=== PATIENT | male | born 1950 | race Caucasian/White ===

== ENCOUNTER 2020-01-30 11:22 | Inpatient (IN) | payer MEDICARE, OTHER ==
[~2020-01-30] VITALS: Ht 170.2 cm; Wt 96.6 kg
[2020-01-30 12:23] LABS: Basophils # (auto) 0.1 10 ^3/uL (0-0.2); Basophils % (auto) 1.3 % (0.0-2.0); Eosinophils # (auto) 0.2 10 ^3/uL (0-0.8); Eosinophils % (auto) 2.8 % (0.0-7.0); Hematocrit 44.8 % (41.0-53.0); Lymphocytes % (auto) 13.7 % (10.0-50.0); Mean Corpuscular Hemoglobin 30.2 pg (28.0-32.0); Mean Corpuscular Hgb Conc. 33.4 g/dL (32.0-36.0); Mean Corpuscular Volume 90.4 fL (80.0-100.0); Monocytes # (auto) 0.8 10 ^3/uL (0-1.3); Monocytes % (auto) 11.2 % (0.0-12.0); Nucleated Red Blood Cells % 0.1 %; Platelet Count (auto) 243 10^3/uL (140-450); Red Blood Cells 4.96 10^6/uL (4.5-5.90); Red Cell Distribution Width 14.8 % (11.8-14.3)
[2020-01-30 12:45] LABS: Albumin 3.2 g/dL (3.4-5.0); Anion Gap 9 (5-15); Blood Urea Nitrogen 19 mg/dL (7-18); Calcium 8.4 mg/dL (8.5-10.1); Carbon Dioxide 21 mmol/L (21-32); Chloride 108 mmol/L (98-107); Glucose 106 mg/dL (74-106); Potassium 4.2 mmol/L (3.5-5.1); Sodium 138 mmol/L (136-145)
[2020-01-30 12:50] LABS: Alanine Aminotransferase 33 U/L (16-61); Alkaline Phosphatase 106 U/L (45-117); Aspartate Aminotransferase 29 U/L (15-37); BUN/Creatinine Ratio 17.9; Bilirubin, Total 0.3 mg/dL (0.2-1.0); GFR African American 89 mL/min; GFR Non-African American 74 mL/min; Total Protein 7.8 g/dL (6.4-8.2)
[2020-01-30] MEDS ORDERED: IOHEXOL 350 MG/ML 100ML IJ ONE (13:36)
[2020-01-30] MEDS ORDERED: AZITHROMYCIN 500MG/ 250ML 250 ML IV ONE (16:45)
[2020-01-30] MEDS ORDERED: cefTRIAXone 1GM/50ML D5W 50 ML IV ONE (16:45)
[2020-01-30] MEDS ORDERED: MORPHINE SULF INJ 2 MG/ML SYRINGE 1ML IV PRN (17:30)
[2020-01-30] MEDS ORDERED: ACETAMINOPHEN 325 MG TAB PO PRN (17:30)
[2020-01-30] MEDS ORDERED: LORazepam 2MG/ML-1ML VIAL IV PRN (17:30)
[2020-01-30] MEDS ORDERED: ONDANSETRON HCL 4 MG/2 ML VIAL IV PRN (17:30)
[2020-01-30] MEDS ORDERED: HYDROcodone-ACET 5/325MG TAB PO PRN (17:30)
[2020-01-30] MEDS ORDERED: NITROGLYCERIN 0.4 MG SL TAB SL PRN (17:30)
[2020-01-30 17:48] LABS: Urine Bacteria NONE SEEN /hpf (None Seen); Urine Blood TRACE /uL (Negative); Urine Mucus FEW (None Seen); Urine Specific Gravity 1.029 (1.001-1.035); Urine WBC 1 /hpf (0 - 3)
--- NOTE | 2020-01-30 19:51 | NUR ---
MS admit from ER SOFIA THOMPSON admitted to tele/MS after SBAR received. Patient oriented to Maya Mary, primary RN, unit, room, bed, and unit policies regarding patient care and visiting hours. Patient weighed by bedscale and encouraged to call if they need something. All questions and concerns addressed, patient verbalized understanding.
[2020-01-30 21:30] VITALS: BP 138/87
[2020-01-30] MEDS ORDERED: OMEP20TA PO (21:41)
[2020-01-30 22:00] VITALS: BP 138/87
[2020-01-31] VITALS (7 sets, daily range): BP systolic 109–149; BP diastolic 68–90
[2020-01-31 06:08] LABS: Basophils # (auto) 0 10 ^3/uL (0-0.2); Basophils % (auto) 0.7 % (0.0-2.0); Eosinophils # (auto) 0.2 10 ^3/uL (0-0.8); Eosinophils % (auto) 3.6 % (0.0-7.0); Hematocrit 38.4 % (41.0-53.0); Hemoglobin 12.9 g/dL (13.5-17.5); Lymphocytes % (auto) 18.3 % (10.0-50.0); Mean Corpuscular Hemoglobin 30.4 pg (28.0-32.0); Mean Corpuscular Hgb Conc. 33.7 g/dL (32.0-36.0); Mean Corpuscular Volume 90.3 fL (80.0-100.0); Monocytes # (auto) 0.7 10 ^3/uL (0-1.3); Monocytes % (auto) 14.2 % (0.0-12.0); Neutrophils # (auto) 3.3 10 ^3/uL (1.6-8.6); Neutrophils % (auto) 63.2 % (37.0-80.0); Nucleated Red Blood Cells % 0.1 %; Platelet Count (auto) 204 10^3/uL (140-450); Red Blood Cells 4.25 10^6/uL (4.5-5.90); Red Cell Distribution Width 14.9 % (11.8-14.3); White Blood Cell 5.2 10^3/uL (4.4-10.8)
[2020-01-31 06:31] LABS: Albumin 2.8 g/dL (3.4-5.0); Calcium 8.2 mg/dL (8.5-10.1)
[2020-01-31 06:35] LABS: BUN/Creatinine Ratio 18.2; Bilirubin, Total 0.3 mg/dL (0.2-1.0); Total Protein 6.8 g/dL (6.4-8.2)
--- NOTE | 2020-01-31 07:50 | NUR ---
Opening Shift Note Assumed care of patient, awake and alert. No S/S of distress/SOB or pain. Instructed on POC and to call for assist PRN, will continue to monitor for changes Q1hr and PRN. Bed locked in lowest position with two side rails up and call light in reach.
[2020-01-31] MEDS: ENOXAPARIN SOD 40 MG/0.4 ML SYRINGE SC SCH (09:42)
[2020-01-31] MEDS: AZITHROMYCIN 500MG/ 250ML 250 ML IV SCH (09:42)
[2020-01-31] MEDS ORDERED: cefTRIAXone 1GM/50ML D5W 50 ML IV SCH (10:00)
[2020-01-31] MEDS: NICOTINE 14 MG/24HR TOPICAL PATCH TD ONE ×2 (10:45→14:00)
--- NOTE | 2020-01-31 12:56 | NUR ---
DR MARCOS ROUNDING ORDERS RECEIVED. WILL IMPLEMENT.
[2020-01-31] MEDS ORDERED: IPRATROPIUM BROM 0.5 MG/2.5ML INH SOL NEB PRN (13:00)
[2020-01-31] MEDS ORDERED: ALBUTEROL SULF 2.5 MG/0.5ML(0.5%) NEB SOLN NEB PRN (13:00)
[2020-01-31] MEDS ORDERED: guaiFENesin-DM 100/10mg/5ml SYR PO PRN (13:00)
[2020-01-31] MEDS: guaiFENesin-DM 100/10mg/5ml SYR PO SCH ×3 (13:58→21:30)
[2020-01-31] MEDS: FOLIC ACID 1 MG, MULTIPLE VITAMIN 10 ML, MAGNESIUM SULF SDV 50% 8 MEQ, THIAMINE INJ 100... INJ SCH ×5 (14:01)
[2020-01-31] MEDS: IPRATROPIUM BROM 0.5 MG/2.5ML INH SOL NEB SCH ×3 (14:43→23:01)
[2020-01-31] MEDS: ALBUTEROL SULF 2.5 MG/0.5ML(0.5%) NEB SOLN NEB SCH ×3 (14:44→23:01)
--- NOTE | 2020-01-31 19:30 | NUR ---
received report from day rn poc reviewed
[2020-01-31] MEDS: BUDESONIDE (INHALATION) 0.5 MG/2 ML NEB NEB SCH (23:00)
--- NOTE | 2020-02-01 00:11 | NUR ---
awoke resp even and unlabored, no c/o pain or discomfort
--- NOTE | 2020-02-01 00:12 | NUR ---
resting with eyes closed no c/o distress
[2020-02-01] MEDS: guaiFENesin-DM 100/10mg/5ml SYR PO SCH ×2 (04:30→10:34)
[2020-02-01 05:00] VITALS: BP 133/67
[2020-02-01] MEDS: IPRATROPIUM BROM 0.5 MG/2.5ML INH SOL NEB SCH ×3 (05:45→14:00)
[2020-02-01] MEDS: ALBUTEROL SULF 2.5 MG/0.5ML(0.5%) NEB SOLN NEB SCH ×3 (05:45→14:00)
[2020-02-01] MEDS: BUDESONIDE (INHALATION) 0.5 MG/2 ML NEB NEB SCH (05:46)
[2020-02-01 06:12] LABS: Basophils # (auto) 0 10 ^3/uL (0-0.2); Basophils % (auto) 0.7 % (0.0-2.0); Eosinophils # (auto) 0.2 10 ^3/uL (0-0.8); Hematocrit 39.7 % (41.0-53.0); Hemoglobin 13.3 g/dL (13.5-17.5); Lymphocytes # (auto) 0.8 10 ^3/uL (0.4-5.4); Lymphocytes % (auto) 15.4 % (10.0-50.0); Mean Corpuscular Hemoglobin 30.1 pg (28.0-32.0); Mean Corpuscular Hgb Conc. 33.4 g/dL (32.0-36.0); Mean Corpuscular Volume 90.1 fL (80.0-100.0); Monocytes # (auto) 0.7 10 ^3/uL (0-1.3); Neutrophils # (auto) 3.5 10 ^3/uL (1.6-8.6); Neutrophils % (auto) 67.9 % (37.0-80.0); Platelet Count (auto) 209 10^3/uL (140-450); Red Blood Cells 4.41 10^6/uL (4.5-5.90); Red Cell Distribution Width 14.6 % (11.8-14.3); White Blood Cell 5.2 10^3/uL (4.4-10.8)
--- NOTE | 2020-02-01 06:56 | NUR ---
report given to am nurse poc reviewed
[2020-02-01 07:44] LABS: Albumin 2.9 g/dL (3.4-5.0); Calcium 8.3 mg/dL (8.5-10.1); Potassium 4.1 mmol/L (3.5-5.1)
[2020-02-01 07:47] LABS: BUN/Creatinine Ratio 18.8; Bilirubin, Total 0.4 mg/dL (0.2-1.0); Total Protein 6.9 g/dL (6.4-8.2)
[2020-02-01 08:00] VITALS: BP 114/79
[2020-02-01 08:49] VITALS: BP 114/79
--- NOTE | 2020-02-01 09:20 | NUR ---
RADIOLOGY: Notified bedside Rachell AGUIRRE that per radiologist, Dr Kerr, a lung biopsy via intervention radiology would be too risky. Dr Kerr recommends a bronchoscopy inorder to get biopsy. RN to inform ordering doctor, Dr Santiago. Addendum: 02/01/20 at 1024 by STACY CHESTER RN T/C from bedside Rachell AGUIRRE. Dr Santiago wanting to speak with radiologist, Dr Kerr. Provided RN with MD's cell phone so Dr Santiago can speak with radiologist.
--- NOTE | 2020-02-01 09:53 | NUR ---
I faxed home health and home oxygen order to [facility].
[2020-02-01] MEDS ORDERED: predniSONE 20 MG TAB PO SCH (10:00)
[2020-02-01] MEDS: ENOXAPARIN SOD 40 MG/0.4 ML SYRINGE SC SCH (10:00)
[2020-02-01] MEDS ORDERED: NICOTINE 14 MG/24HR TOPICAL PATCH TD SCH (10:00)
[2020-02-01] MEDS: AZITHROMYCIN 500MG/ 250ML 250 ML IV SCH (10:34)
[2020-02-01] MEDS ORDERED: GUAI600T23 PO (10:35)
[2020-02-01] MEDS ORDERED: PRED20TA2 PO (10:35)
[2020-02-01] MEDS ORDERED: IPRA0.00 IN (10:35)
[2020-02-01] MEDS: FOLIC ACID 1 MG, MULTIPLE VITAMIN 10 ML, MAGNESIUM SULF SDV 50% 8 MEQ, THIAMINE INJ 100... INJ SCH ×5 (12:00)
[2020-02-01 13:00] VITALS: BP 128/77
[2020-02-01 14:59] VITALS: BP 128/77
--- NOTE | 2020-02-01 15:40 | NUR ---
SCHEDULED MN TX NOT GIVEN AT THIS TIME. PT DECLINED MN TX. PT DENIES ANY RESPIRATORY DISTRESS. PT ESTATES HE IS "BEING DISCHARGED". RN AT BEDSIDE.
--- NOTE | 2020-02-01 16:38 | NUR ---
Discharge instructions given as ordered. Encourage to follow up with PMD as instructed. All questions and concerns addressed. Patient verbalized understanding. Medication reconciliation form completed and copy given to patient. No Home medications held in Pharmacy and none to be returned to patient, and no needed vaccines given. IV removed with catheter intact, pressure dressing applied. Patient taken to vehicle via wheelchair with all personal belongings, accompanied by staff and family member. No distress noted at time of departure. Oxygen in hand and delivered to bed, patient taking home.
[2020-02-02] MEDS ORDERED: cefTRIAXone 1GM/50ML D5W 50 ML IV SCH (09:00)
== END 2020-02-01 16:40 | disposition home health service (06) | DRG 189 ==
LOC: ER 11:22 → OVERFLOW 11:23 → WEST WING 19:57
PROVIDERS: ADMIT Internal Medicine; ATTEND Internal Medicine
DX: J96.01 Acute respiratory failure with hypoxia (principal); J18.9 Pneumonia, unspecified organism; I10 Essential (primary) hypertension; R91.1 Solitary pulmonary nodule; R91.8 Other nonspecific abnormal finding of lung field; K21.9 Gastro-esophageal reflux disease without esophagitis; F10.20 Alcohol dependence, uncomplicated; Y90.9 Presence of alcohol in blood, level not specified; J43.9 Emphysema, unspecified; Z20.828 Contact with and (suspected) exposure to other viral communicable diseases; Z87.891 Personal history of nicotine dependence; Z79.899 Other long term (current) drug therapy
CPT/HCPCS: 36415; 71045; 71275; 80053; 80320; 81001; 83605; 84484; 85025; 87040; 87070; 87804; 87880; 93005; 94640; 96365; 96368; G0378; J0696

== ENCOUNTER 2020-07-13 15:43 | Inpatient (IN) | payer OTHER ==
[~2020-07-13] VITALS: Ht 170.2 cm; Wt 70.9 kg
[~2020-07-13 15:43] MED LIST: GUAI600T23 PO; IPRA0.00 IN; OMEP20TA PO; PRED20TA2 PO
[2020-07-13 16:41] LABS: Neutrophils % (auto) 92.5 % (37.0-80.0); White Blood Cell 10.3 10^3/uL (4.4-10.8)
[2020-07-13 16:42] LABS: Basophils # (auto) 0 10 ^3/uL (0-0.2); Basophils % (auto) 0.1 % (0.0-2.0); Eosinophils # (auto) 0 10 ^3/uL (0-0.8); Hemoglobin 12.6 g/dL (13.5-17.5); Lymphocytes # (auto) 0.3 10 ^3/uL (0.4-5.4); Lymphocytes % (auto) 2.8 % (10.0-50.0); Mean Corpuscular Hemoglobin 30.8 pg (28.0-32.0); Mean Corpuscular Hgb Conc. 33.3 g/dL (32.0-36.0); Mean Corpuscular Volume 92.4 fL (80.0-100.0); Monocytes # (auto) 0.5 10 ^3/uL (0-1.3); Monocytes % (auto) 4.6 % (0.0-12.0); Neutrophils # (auto) 9.6 10 ^3/uL (1.6-8.6); Platelet Count (auto) 297 10^3/uL (140-450); Red Blood Cells 4.11 10^6/uL (4.5-5.90); Red Cell Distribution Width 14.3 % (11.8-14.3)
[2020-07-13 17:00] LABS: INR 0.98 (0.9-1.15); Partial Thromboplastin Time 26.5 sec (23.0-31.2)
[2020-07-13 17:10] LABS: Albumin 2.7 g/dL (3.4-5.0); BUN/Creatinine Ratio 26.6; Calcium 9.2 mg/dL (8.5-10.1); Potassium 4.7 mmol/L (3.5-5.1)
[2020-07-13 17:15] LABS: Bilirubin, Total 0.3 mg/dL (0.2-1.0); Total Protein 7.2 g/dL (6.4-8.2)
[2020-07-13] MEDS ORDERED: NITROGLYCERIN 0.4 MG SL TAB SL PRN (18:15)
[2020-07-13] MEDS ORDERED: HYDROmorphone HCL 2 MG/ML VL IV ONE (18:15)
[2020-07-13] MEDS ORDERED: HYDROcodone-ACET 5/325MG TAB PO PRN (18:15)
[2020-07-13] MEDS ORDERED: MORPHINE SULF INJ 2 MG/ML SYRINGE 1ML IV PRN (18:15)
[2020-07-13] MEDS ORDERED: ONDANSETRON HCL 4 MG/2 ML VIAL IV ONE (18:15)
[2020-07-13] MEDS: levoFLOXacin 500MG 100 ML IV SCH (18:34)
[2020-07-13 20:08] VITALS: BP 148/94
--- NOTE | 2020-07-13 21:50 | NUR ---
Telemetry admit from ER DONNASOFIA Hartmann admitted to Telemetry unit after SBAR received. Patient oriented to Mari Posadas, RN primary RN, unit, room, bed, and unit policies regarding patient care and visiting hours. Patient now on continuous telemetry monitoring, tele box #[id number]. Patient placed on bedside oxygen at 6 liters face mask, weighed by bedscale and encouraged to call if they need something. All questions and concerns addressed, patient verbalized understanding. Bed is in lowest locked position with bed rails up x2 and call light is within reach of the patient.
[2020-07-13 22:00] VITALS: BP_SYST 145; BP_SYST 160; BP_DIAS 103; BP_DIAS 96
--- NOTE | 2020-07-13 22:50 | NUR ---
Called and spoke with URBAN ANTHROPOLOGIST: Called ER and spoke with Radha AGUIRRE from ER who previously took care of patient. Radha AGUIRRE clarified that patient is to be on low intermittent suction from chest tube.
[2020-07-13] MEDS ORDERED: GUAI200T2 PO (23:25)
[2020-07-14] VITALS (7 sets, daily range): BP systolic 111–127; BP diastolic 74–93
[2020-07-14 06:52] LABS: Basophils # (auto) 0 10 ^3/uL (0-0.2); Basophils % (auto) 0.2 % (0.0-2.0); Eosinophils # (auto) 0 10 ^3/uL (0-0.8); Eosinophils % (auto) 0.2 % (0.0-7.0); Hematocrit 37.5 % (41.0-53.0); Hemoglobin 12.5 g/dL (13.5-17.5); Lymphocytes # (auto) 0.5 10 ^3/uL (0.4-5.4); Lymphocytes % (auto) 6.1 % (10.0-50.0); Mean Corpuscular Hemoglobin 30.9 pg (28.0-32.0); Mean Corpuscular Hgb Conc. 33.3 g/dL (32.0-36.0); Mean Corpuscular Volume 92.8 fL (80.0-100.0); Monocytes # (auto) 0.8 10 ^3/uL (0-1.3); Monocytes % (auto) 10.1 % (0.0-12.0); Neutrophils # (auto) 6.8 10 ^3/uL (1.6-8.6); Neutrophils % (auto) 83.4 % (37.0-80.0); Platelet Count (auto) 257 10^3/uL (140-450); Red Blood Cells 4.04 10^6/uL (4.5-5.90); Red Cell Distribution Width 14.1 % (11.8-14.3); White Blood Cell 8.1 10^3/uL (4.4-10.8)
[2020-07-14 07:06] LABS: Potassium 4.7 mmol/L (3.5-5.1)
--- NOTE | 2020-07-14 09:05 | NUR ---
PT STATES PERSISTENT UNPRODUCTIVE COUGHING AND SOB. RT PAGED FOR BREATHING TX. Addendum: 07/14/20 at 0914 by Rae Shah RN SPO2 93% ON 4L N/C, PT PUT ON FACE MASK AT 8L, SPO2 99%. WILL CONTINUE TO MONITOR.
--- NOTE | 2020-07-14 09:12 | NUR ---
RT AT BEDSIDE FOR BREATHING TX.
--- NOTE | 2020-07-14 09:43 | NUR ---
DR. WHEELER PAGED RE PT STATES CONTINUED NONPRODUCTIVE COUGHING AND SOB.
--- NOTE | 2020-07-14 09:50 | NUR ---
RECEIVED CALL BACK FROM DR. WHEELER. UPDATED ON PATIENT STATUS. NEW ORDERS RECEIVED AND CARRIED OUT.
[2020-07-14] MEDS: PANTOPRAZOLE 40 MG TAB PO SCH (10:09)
[2020-07-14] MEDS: MORPHINE SULF INJ 2 MG/ML SYRINGE 1ML IV PRN ×3 (10:09→23:11)
[2020-07-14] MEDS: DOCUSATE SOD 100 MG CAP PO SCH (10:09)
[2020-07-14] MEDS: guaiFENesin 200 MG/10 ML UD PO PRN ×3 (10:10→21:59)
[2020-07-14] MEDS: ENOXAPARIN SOD 40 MG/0.4 ML SYRINGE SC SCH (10:10)
[2020-07-14] MEDS: levoFLOXacin 500MG 100 ML IV SCH (10:10)
--- NOTE | 2020-07-14 12:52 | NUR ---
Dr. Hale paged regarding CXR results. Awaiting call back.
--- NOTE | 2020-07-14 19:30 | NUR ---
OPENING SHIFT NOTE Assumed care of patient who is A&Ox4. Currently on 8L via NC with continuous oximeter monitoring in place. Shallow respirations and dry cough noted. Patient states it is painful to take a deep breath. Chest tube present at left upper chest, connected to LIS. Minimal serosanguineous fluid noted in tubing. Dressing to left flank is CDI. Patient denies pain to this area. PIV in right wrist is intact and patent. Flushed with 10ml NS. Patient is currently on bedrest, however is ambulatory at baseline. Bed is in low locked position with side rails up x2. Call light is within reach and patient encouraged to call for assistance when needed. Will continue to monitor for changes PRN.
--- NOTE | 2020-07-14 19:40 | NUR ---
Patient has finished eating and now placed back onto simple mask. Spo2 is 99% at 8L.
--- NOTE | 2020-07-14 22:07 | NUR ---
ROUNDS Pulse oximeter not reading at this time. Probe changed, and spo2 is 100%, HR 129. Patient reports nagging dry cough, resulting in chest pain at chest tube insertion site. Patient requesting Morphine at this time. Informed that medication was not yet due at this time; Guaifenesin administered according to orders. Patient verbalized understanding.
--- NOTE | 2020-07-14 23:18 | NUR ---
ABNORMAL HEART RHYTHM Patient had a 7 beat run of Vtach. Patient denies chest pain at this time. ECG performed and is unchanged in comparison to ECG from admission. Notified Dr. Merida, on-call for Dr. Gotti. New orders received. Read back and verified. Will follow through.
[2020-07-15 05:00] VITALS: BP 113/77
[2020-07-15] MEDS: MORPHINE SULF INJ 2 MG/ML SYRINGE 1ML IV PRN ×2 (06:19→20:50)
--- NOTE | 2020-07-15 06:23 | NUR ---
BREATH SOUNDS Patient has audible rhonchi in Bilateral upper lobes. Spo2 is 98% on 8L via mask. Patient continues to cough and have difficulty clearing secretions. Declines expectorant at this time. RT paged for PRN breathing treatment. Patient requests pain medication for chest pain associated with repeated coughing. Patient medicated according to orders.
[2020-07-15] MEDS: ALBUTEROL SULF 2.5 MG/0.5ML(0.5%) NEB SOLN NEB PRN (06:37)
[2020-07-15] MEDS: IPRATROPIUM BROM 0.5 MG/2.5ML INH SOL NEB PRN (06:38)
--- NOTE | 2020-07-15 06:44 | NUR ---
CLOSING NOTE Patient continues to be stable at this time. Reports improvement in pain. Chest tube remains in place, connected to LIS. Care endorsed to on coming RN.
[2020-07-15 09:00] VITALS: BP 104/74
[2020-07-15] MEDS: PANTOPRAZOLE 40 MG TAB PO SCH (10:33)
[2020-07-15] MEDS: DOCUSATE SOD 100 MG CAP PO SCH (10:33)
[2020-07-15] MEDS: levoFLOXacin 500MG 100 ML IV SCH (10:33)
[2020-07-15] MEDS: ENOXAPARIN SOD 40 MG/0.4 ML SYRINGE SC SCH (10:34)
[2020-07-15 13:00] VITALS: BP 105/77
[2020-07-15 17:00] VITALS: BP 116/78
[2020-07-15 19:40] VITALS: BP 120/65
--- NOTE | 2020-07-15 19:40 | NUR ---
OPENING SHIFT NOTE Assumed care of patient who is A&O x4. Currently on 4L via simple mask. Patient is coughing and has rhonchi throughout bilaterally. sPo2 is 79% Patient is requesting breathing treatment. O2 increased to 8L via simple mask. spo2 increased to 97% Guaifenesin administered as ordered to assist with expectoration. Emesis bag provided for expectorating. RT paged per patient request.
[2020-07-15] MEDS: guaiFENesin 200 MG/10 ML UD PO PRN (19:49)
--- NOTE | 2020-07-15 20:15 | NUR ---
RESPIRATORY Received call back from RT. Explained patient's situation. Per RT, Neb treatment would not be helpful for patient's current complaint at this time. RT to come speak with patient. Patient informed by this RN that breathing treatment is not indicated at this time. Encouraged to continue attempting to expectorate secretions and drink water as tolerated to help thin secretions. Instructed to notify this RN immediately if SOB or difficulty breathing increases. Patient verbalizes understanding and states that his "coughing and phlegm is getting better" since the administration of Guaifenesin. Spo2 remains at 97% at this time. Will continue to monitor for changes.
[2020-07-15 22:49] VITALS: BP 120/65
[2020-07-16] MEDS: MORPHINE SULF INJ 2 MG/ML SYRINGE 1ML IV PRN ×2 (04:47→22:48)
[2020-07-16 05:36] VITALS: BP 126/68
[2020-07-16 06:07] LABS: Basophils # (auto) 0 10 ^3/uL (0-0.2); Basophils % (auto) 0.3 % (0.0-2.0); Eosinophils # (auto) 0 10 ^3/uL (0-0.8); Eosinophils % (auto) 0.4 % (0.0-7.0); Hematocrit 34.4 % (41.0-53.0); Hemoglobin 11.6 g/dL (13.5-17.5); Lymphocytes # (auto) 0.5 10 ^3/uL (0.4-5.4); Lymphocytes % (auto) 6.9 % (10.0-50.0); Mean Corpuscular Hemoglobin 30.7 pg (28.0-32.0); Mean Corpuscular Hgb Conc. 33.6 g/dL (32.0-36.0); Mean Corpuscular Volume 91.2 fL (80.0-100.0); Monocytes # (auto) 0.6 10 ^3/uL (0-1.3); Monocytes % (auto) 9.1 % (0.0-12.0); Neutrophils # (auto) 5.9 10 ^3/uL (1.6-8.6); Neutrophils % (auto) 83.3 % (37.0-80.0); Platelet Count (auto) 268 10^3/uL (140-450); Red Blood Cells 3.78 10^6/uL (4.5-5.90); Red Cell Distribution Width 14.1 % (11.8-14.3); White Blood Cell 7.1 10^3/uL (4.4-10.8)
[2020-07-16 06:26] LABS: BUN/Creatinine Ratio 24.5; Calcium 9.2 mg/dL (8.5-10.1); Potassium 4.2 mmol/L (3.5-5.1)
--- NOTE | 2020-07-16 06:40 | NUR ---
RT NOTE PRN MED NEB TX NOT INDICATED AT THIS TIME. NO SIGNS OR SYMPTOMS OF RESPIRATORY DISTRESS NOTED. HR 108, RR 16, SPO2 97% ON 7L SIMPLE MASK, BS CLEAR. PT IS ON CONTINUOUS BEDSIDE POX MONITORING.PT IS SLEEPING COMFORTABLY.
--- NOTE | 2020-07-16 08:00 | NUR ---
OPENING SHIFT NOTE ASSUMED CARE OF PATIENT AWAKE AND ALERT. NO S/S OF DISTRESS NOTED OR COMPLAINTS OF PAIN. PATIENT UPDATED ON POC FOR THE DAY, ALL QUESTIONS ANSWERED. PATIENT VERBALIZED UNDERSTANDING. BED IS IN LOWEST, LOCKED POSITION WITH SIDE RAILS UP X2 AND CALL LIGHT WITHIN REACH. WILL CONTINUE TO MONITOR Q1H AND PRN.
[2020-07-16 08:44] VITALS: BP 125/70
[2020-07-16] MEDS: DOCUSATE SOD 100 MG CAP PO SCH ×2 (09:57→10:03)
[2020-07-16] MEDS: levoFLOXacin 500MG 100 ML IV SCH ×2 (09:57→10:03)
[2020-07-16] MEDS: PANTOPRAZOLE 40 MG TAB PO SCH ×2 (09:57→10:03)
[2020-07-16] MEDS: ENOXAPARIN SOD 40 MG/0.4 ML SYRINGE SC SCH ×2 (09:58→10:03)
[2020-07-16 13:00] VITALS: BP 114/84
[2020-07-16 16:29] VITALS: BP 115/82
--- NOTE | 2020-07-16 19:15 | NUR ---
Opening shift note Received bedside report from day shift RNBecky. Patient A&Ox4, patient on 8L by simple mask, showing 99% at this time. Made aware that patient will switch to 4L NC while eating. Chest tube connected to LIS with less than 5 ml of serosanguineous fluid in suction canister. Discussed POC with patient who verbalized understanding. Advised patient to call for assistance. Urinal bedside. Safety precautions in place, bed in lowest locked position with 2 side rails up, call light within reach. Will continue to monitor Q1hr and PRN.
--- NOTE | 2020-07-16 19:20 | NUR ---
Respiratory note: ASSESSMENT FOR PRN MED NEB TX AND PULSE OX ASSESSMENT. PT IN NO RESPIRATORY DISTRESS, SITTING UP IN BED WATCHING TV. HR 114, SPO2 98% ON 8L SIMPLE MASK, RR 17, BS DIMINISHED CLEAR. MED NEB TX NOT INDICATED AT THIS TIME, PT ON CONT. BEDSIDE PULSE OX, PLUGGED INTO RED OUTLET. WILL CONTINUE TO MONITOR.
[2020-07-16 21:08] LABS: Basophils # (auto) 0 10 ^3/uL (0-0.2); Basophils % (auto) 0.3 % (0.0-2.0); Eosinophils # (auto) 0 10 ^3/uL (0-0.8); Eosinophils % (auto) 0.3 % (0.0-7.0); Hematocrit 35.6 % (41.0-53.0); Hemoglobin 11.5 g/dL (13.5-17.5); Lymphocytes # (auto) 0.4 10 ^3/uL (0.4-5.4); Mean Corpuscular Hemoglobin 29.7 pg (28.0-32.0); Mean Corpuscular Hgb Conc. 32.4 g/dL (32.0-36.0); Mean Corpuscular Volume 91.6 fL (80.0-100.0); Monocytes # (auto) 0.7 10 ^3/uL (0-1.3); Monocytes % (auto) 8.3 % (0.0-12.0); Neutrophils # (auto) 6.8 10 ^3/uL (1.6-8.6); Neutrophils % (auto) 86.1 % (37.0-80.0); Platelet Count (auto) 290 10^3/uL (140-450); Red Blood Cells 3.89 10^6/uL (4.5-5.90); White Blood Cell 7.9 10^3/uL (4.4-10.8)
--- NOTE | 2020-07-16 21:10 | NUR ---
Patient taken to radiology for CT
--- NOTE | 2020-07-16 21:30 | NUR ---
Patient returned to room from radiology Returned to LIS. Patient 99% on 8L. Patient tolerated well.
[2020-07-16 21:51] VITALS: BP 115/82
[2020-07-17 05:14] VITALS: BP 108/72
--- NOTE | 2020-07-17 06:40 | NUR ---
Ultrasound called Pleurax procedure possible today. Advised to continue holding Lovenox. Will relay to day shift RN.
--- NOTE | 2020-07-17 07:15 | NUR ---
SHIFT OPEN NOTE Assumed care of patient alert and oriented x 4 sob with talking. Currently on 8L via simple mask continuous pulse oxygen 98%. Patient denied pain, no distress. RT paged per patient request for breathing treatment. Hymlick chest tube patent set on LIS currently 100 cc serosanguineous.
[2020-07-17 08:34] VITALS: BP 126/78
[2020-07-17] MEDS ORDERED: MIDAZOLAM HCL 1MG/1ML-2 ML VIAL IV ONE (08:45)
[2020-07-17] MEDS ORDERED: fentaNYL CITRATE 100 MCG/2 ML VL IV ONE (08:45)
[2020-07-17] MEDS: IPRATROPIUM BROM 0.5 MG/2.5ML INH SOL NEB PRN (09:14)
[2020-07-17] MEDS: ALBUTEROL SULF 2.5 MG/0.5ML(0.5%) NEB SOLN NEB PRN (09:14)
--- NOTE | 2020-07-17 09:14 | NUR ---
Respiratory note: PT GIVEN A PRN MEDNEB TX DUE TO INCREASED WOB, SOB, AND COARSE/DIMINISHED BS BILATERALLYL. SPO2 98% ON 8L OXYMIZER, HR 110, RR 20. NO ADVERSE EFFECTS NOTED. PT HAS A LEFT-SIDED [place] CHEST TUBE IN PLACE. PT STATED THAT HE FELT A LOT BETTER AFTER MEDNEB TX. NO FURTHER RESPIRATORY INTERVENTIONS INDICATED AT THIS TIME. WILL CONTINUE TO MONITOR PT.
--- NOTE | 2020-07-17 09:30 | NUR ---
SHERIFF DETECTIVE ASSESSED PATIENT - FOUND TO BE ON NRB MASK AT 9L AND SOB WHILE ASLEEP - RESP 32-36/MIN, SAO2 98% SHERIFF DETECTIVE SPOKE TO PATIENT'S RN CECILIA- STATES THAT PATIENT RESP STATUS WAS SAME SHERIFF DETECTIVE'S ASSESSMENT. ALSO SPOKE TO TONI ORELLANA RE: PATIENT'S RESP STATUS - PLACED PATIENT ON O2 @9L PER OXYMIZER. SPOKE TO DR DE LEON RE: PATIENT SOB AND PATIENT'S O2 NEEDS. DR DE LEON SPOKE TO DR PATEL RE: PATIENT RESP STATUS NOT STABLE ENOUGH FOR PLEURX CATHETER PLACEMENT. SHERIFF DETECTIVE INFORMED PATIENT'S RN CECILIA.
--- NOTE | 2020-07-17 10:30 | NUR ---
NO CHEST TUBE REPLACEMENT TODAY PER INSTRUCTIONAL SPECIALIST ENRIQUE , DR DE LEON WILL NOT DO SURGERY , DR DE LEON WILL CONTACT LIYAH.
--- NOTE | 2020-07-17 10:30 | NUR ---
SALAD CHEF INFORMED PATIENT OF PROCEDURE NOT BEING DONE TODAY-PATIENT ANGRY. SALAD CHEF EXPLAINED REASON FOR PROCEDURE NOT TO BE DONE DUE TO UNSTABLE RESP STATUS-PATIENT VERBALIZES UNDERSTANDING.
--- NOTE | 2020-07-17 11:37 | NUR ---
Nutrition Assessment Note please see attached link for complete assessment. Est energy needs BW 72 [id number] kcal (25-30 kcal/kg BW), Est protein needs: 72-86 g (1.0-1.2g/kg BW) Will reassess prn. Addendum: 07/17/20 at [address] Amended: Links added.
[2020-07-17 12:09] VITALS: BP 117/72
--- NOTE | 2020-07-17 14:15 | NUR ---
DR HICKEY REQUESTED NEWS COPY EDITOR'S ASSISTANCE WITH POSSIBLE PLACEMENT OF PLEURX CATHETER. CHEST U.S. DONE AT BEDSIDE PER DR HICKEY - STATES NOT ENOUGH FLUID TO PLACE PLEURX CATHETER PRESENT. NEWS COPY EDITOR INFORMED [employer] DEPT AND CECILIA AGUIRRE.
[2020-07-17 16:52] VITALS: BP 113/71
--- NOTE | 2020-07-17 17:45 | NUR ---
DR PATEL BEDSIDE DISCUSSED POC WITH PATIENT AND PATIENTS ; OFFERED OPTIONS TO TRANSFER TO A DIFFERENT HOSPITAL OR CONSIDER COMFORT CARE WITH HOSPICE. DR PATEL ALSO SPOKE WITH PULMONARY MD ON THE CASE AND THE PATIENTS ONCOLOGIST.
--- NOTE | 2020-07-17 19:11 | NUR ---
RT NOTE; PT ON 8LPM OXYMIZER, SPO2 94%. INCREASED TO 10LPM TO KEEP >98%. PT EATING DINNER WITH NO RESPIRATORY DISTRESS NOTED AT THIS TIME.
--- NOTE | 2020-07-17 19:20 | NUR ---
Opening shift note Assumed care of patient from day shift RN, Jeremy. Patient is A&Ox4, respirations even and non-labored at this time. Patient SpO2 at 99%. Discussed POC with patient who became very emotional regarding his current status. Stayed with patient to offer support/comfort. Once patient was stable he was advised to call for assistance. Bed in lowest locked position with 2 side rails up, Call light within reach. Will continue to monitor Q1hr and PRN.
[2020-07-17] MEDS: MORPHINE SULF INJ 2 MG/ML SYRINGE 1ML IV PRN (20:18)
[2020-07-17 22:00] VITALS: BP 116/77
[2020-07-18 05:00] VITALS: BP 123/78
[2020-07-18] MEDS: IPRATROPIUM BROM 0.5 MG/2.5ML INH SOL NEB PRN (06:19)
[2020-07-18] MEDS: ALBUTEROL SULF 2.5 MG/0.5ML(0.5%) NEB SOLN NEB PRN (06:19)
--- NOTE | 2020-07-18 06:50 | NUR ---
Patient resting Respirations even and non-labored with no s/s of distress at this time.
--- NOTE | 2020-07-18 07:26 | NUR ---
SHIFT OPEN NOTE Assumed care of patient alert and oriented x 4 sob with talking.Patient verbalized he would like to go home on hospice. Currently on 8L via simple mask continuous pulse oxygen 98%. Patient denied pain, no distress. RT paged per patient request for breathing treatment. Hymlick chest tube patent set on LIS currently minimal serosanguineous.
[2020-07-18 09:00] VITALS: BP 112/72
[2020-07-18] MEDS: ENOXAPARIN SOD 40 MG/0.4 ML SYRINGE SC SCH (10:00)
--- NOTE | 2020-07-18 10:00 | NUR ---
lovenox held for possible chest tube replacement
[2020-07-18] MEDS ORDERED: PRED20TA2 PO (11:17)
[2020-07-18] MEDS ORDERED: GUAI600T23 PO (11:17)
[2020-07-18] MEDS ORDERED: IPRA0.00 IN (11:17)
[2020-07-18] MEDS ORDERED: methylPREDNISolone SOD SUCC 125 MG/2 ML VL IV SCH (11:30)
[2020-07-18] MEDS: levoFLOXacin 500MG 100 ML IV SCH (12:02)
[2020-07-18] MEDS: PANTOPRAZOLE 40 MG TAB PO SCH (12:02)
[2020-07-18] MEDS: DOCUSATE SOD 100 MG CAP PO SCH (12:02)
[2020-07-18 13:00] VITALS: BP 121/79
--- NOTE | 2020-07-18 14:00 | NUR ---
Assessment Patient is a 69-year-old male who is alert and oriented. Prior to admission patient lived home with family and functioned with assistance. Per patient his Teetee helps him with his ADL's. Patient has a wheelchair and bedside commode for home use, Per patient he will return home to his prior living arrangements post discharge and family will transport him home. Advised patient there is a social service consult for Palliative care under [facility]. Informed patient MD [facility] Informed patient he has the right to participate in all discharge planning. Patient verbalized understanding and agreed to discharge plan. [facility] to [facility]. Addendum: 07/18/20 at 1403 by NEVA POLLARD Amended: Links added.
--- NOTE | 2020-07-18 19:11 | NUR ---
Discharge instructions given as ordered. Encourage to follow up with PMD as instructed. All questions and concerns addressed. Patient verbalized understanding. IV removed with catheter intact, pressure dressing applied, Telemetry unit returned to ICU. Patient taken to vehicle via wheelchair with all personal belongings, accompanied by staff and family member. No distress noted at time of departure.
[2020-07-18] MEDS ORDERED: BUDESONIDE (INHALATION) 0.5 MG/2 ML NEB NEB SCH (22:00)
== END 2020-07-18 18:45 | disposition home health service (06) | DRG 199 ==
LOC: ER 15:43 → TELE 15:44 → TELE-CENTR 21:46
PROVIDERS: ADMIT Internal Medicine; ATTEND Internal Medicine
PROC: 0W9B3ZZ Drainage of Left Pleural Cavity, Percutaneous Approach (ICD-10-PCS; principal; 2020-07-13)
PROC: 0W9930Z Drainage of Right Pleural Cavity with Drainage Device, Percutaneous Approach (ICD-10-PCS; 2020-07-13)
DX: J93.9 Pneumothorax, unspecified (principal); J96.01 Acute respiratory failure with hypoxia; J90 Pleural effusion, not elsewhere classified; C34.90 Malignant neoplasm of unspecified part of unspecified bronchus or lung; J98.11 Atelectasis; K21.9 Gastro-esophageal reflux disease without esophagitis; Z20.828 Contact with and (suspected) exposure to other viral communicable diseases; J43.2 Centrilobular emphysema; Z85.118 Personal history of other malignant neoplasm of bronchus and lung
CPT/HCPCS: 32555; 36415; 71045; 71250; 76604; 76942; 80048; 80053; 83615; 83880; 84484; 85025; 85610; 85730; 93306; 94640; 96374; 96375; 99291; G0378; J1956; J2405